=== PATIENT | male | born 1970 | race Caucasian/White ===

== ENCOUNTER → 2017-07-10 | Outpatient (CLI) | payer OTHER ==
--- NOTE | 2017-07-10 09:54 | RAD ---
Indication abdominal pain and cramping. Left lower quadrant pain. Duration of symptoms 3 days. Supine and upright films of the abdomen were obtained. Comparison is made to a prior plain film over 12 years earlier. The lung bases appear clear. The abdominal gas pattern is normal. No definite organomegaly or abnormal calculi are seen. There is no free air. There are multiple calcifications in the pelvis compatible with phleboliths. The visualized bony structures appear grossly intact. IMPRESSION: No acute or significant finding seen on plain films of the abdomen
== END | disposition home or self-care (01) ==
LOC: DXRADRC 08:55
PROVIDERS: ATTEND Family Medicine
DX: R10.32 Left lower quadrant pain (principal); R25.2 Cramp and spasm
CPT/HCPCS: 74020

== ENCOUNTER → 2020-06-01 | Outpatient (CLI) | payer BC ==
--- NOTE | 2020-06-01 14:05 | RAD ---
RIBS RIGHT AND PA CHEST 06/01/2020 12:00 AM INDICATION: Right rib pain COMPARISON: None available TECHNIQUE: Portable frontal view of the chest is provided. 4 views of the right ribs are provided. FINDINGS: The cardiomediastinal silhouette is within normal limits. Lungs are clear. There are no significant pleural effusions. There is no pulmonary vascular congestion. No pneumothorax. No suspicious osseous abnormality. No acutely displaced right-sided rib fracture. IMPRESSION: There is no acute cardiopulmonary process. No acutely displaced right-sided rib fracture. Electronically signed by: Petra Manning MD (06/01/2020 2:02 PM) [id number]
== END | disposition home or self-care (01) ==
LOC: PMG 09:54
DX: R07.81 Pleurodynia (principal)
CPT/HCPCS: 71101